=== PATIENT | male | born 1950 | race Caucasian/White ===

== ENCOUNTER 2017-03-13 18:21 | Emergency (ER) | payer MEDICARE, OTHER ==
[~2017-03-13] VITALS: Ht 165.1 cm; Wt 70.0 kg
[~2017-03-13 18:21] MED LIST: ACETAMIN325 MG PO; CIPROFLOXACN500 MG PO; COLCHICINE0.6 M2 PO; GLYCOLAX3350 N1 PO; LASIX 20 MG20 MG/TAB PO; LASIX 40 MG40 MG/TAB PO; LEXAPRO10 MG PO; NORCO1 TA1 PO; PANTOPRAZOLE SO40 M1 PO; PREDNISONE10 MG PO; PREDNISONE20 MG PO; PRILOSEC20 MG PO; TAB-A-VITE W/1 COMBO PO; THIAMINE HCL100 MG PO; TRAMADOL HCL50 MG PO; TRAMADOL HYDROC50 MG PO; [UNRECOGNIZED DRUG - CODE] PO
[2017-03-13] MEDS ORDERED: OMEPRAZOLE10 MG PO (18:40)
[2017-03-13] MEDS ORDERED: METOPROL TAR25 MG PO (18:40)
[2017-03-13] MEDS ORDERED: FERROUS SULF325 M2 PO (18:41)
[2017-03-13] MEDS ORDERED: LEVEMIR FL100 UNIT/M SC (18:42)
[2017-03-13] MEDS ORDERED: EFFEXOR XR75 MG PO (18:43)
[2017-03-13 18:56] LABS: HEMATOCRIT 42.4 % (39.0-50.0); HEMOGLOBIN 14.4 g/dl (14.0-18.0); IMMATURE GRANULOCYTES 0.9 % (0.0-1.0); MEAN CELL VOLUME 93.2 fL CALC (80.0-100.0); MEAN CORPUSCULAR HGB 31.6 pG CALC (26.0-32.0); NEUT# 7.39 thou/uL (1.82-7.42); RED BLOOD COUNT 4.55 mill/uL (4.70-6.10); RED CELL DISTRI WIDTH 12.9 % (11.5-15.5)
[2017-03-13 19:09] LABS: ALBUMIN 3.8 g/dL (3.2-5.0); BILIRUBIN, TOTAL 0.5 mg/dL (0.0-1.4); CALCIUM 9.2 mg/dL (8.4-10.2); CREATININE 1.5 mg/dL (0.7-1.3); POTASSIUM 4.5 mmol/l (3.5-5.1); TOTAL PROTEIN 6.7 g/dL (6.3-8.2)
[2017-03-13] MEDS ORDERED: ATIVAN0.5 MG PO (19:20)
[2017-03-13 19:56] VITALS: BP 132/84
== END 2017-03-13 19:56 ==
LOC: ED 18:21
PROVIDERS: Emergency Medicine
DX: R45.1 Restlessness and agitation (principal); I25.2 Old myocardial infarction; F03.90 Unspecified dementia, unspecified severity, without behavioral disturbance, psychotic disturbance, mood disturbance, and anxiety; E11.9 Type 2 diabetes mellitus without complications; Z79.4 Long term (current) use of insulin
CPT/HCPCS: J2060

== ENCOUNTER 2017-12-20 09:50 | Inpatient (IN) | payer MEDICARE, OTHER ==
[2017-12-20] VITALS (13 sets, daily range): BP systolic 84–140; BP diastolic 44–89
[~2017-12-20] VITALS: Ht 165.1 cm; Wt 60.0 kg
[~2017-12-20 09:50] MED LIST changes: +ATIVAN0.5 MG PO; +EFFEXOR XR75 MG PO; +FERROUS SULF325 M2 PO; +LEVEMIR FL100 UNIT/M SC; +METOPROL TAR25 MG PO; +OMEPRAZOLE10 MG PO
[2017-12-20 10:46] LABS: HEMATOCRIT 43.3 % (39.0-50.0); HEMOGLOBIN 14.7 g/dl (14.0-18.0); IMMATURE GRANULOCYTES 0.9 % (0.0-1.0); MEAN CELL VOLUME 93.1 fL CALC (80.0-100.0); MEAN CORPUSCULAR HGB 31.6 pG CALC (26.0-32.0); MEAN CORPUSCULAR HGB CONC 33.9 g/L CALC (32.0-36.0); NEUT# 16.27 thou/uL (1.82-7.42); RED BLOOD COUNT 4.65 mill/uL (4.70-6.10); RED CELL DISTRI WIDTH 13.3 % (11.5-15.5)
[2017-12-20 11:02] LABS: ALBUMIN 4.2 g/dL (3.2-5.0); BILIRUBIN, TOTAL 1.1 mg/dL (0.0-1.4); CREATININE 1.7 mg/dL (0.7-1.3); POTASSIUM 4.3 mmol/l (3.5-5.1); TOTAL PROTEIN 7.3 g/dL (6.3-8.2)
[2017-12-20] MEDS ORDERED: ERGOCALCIF50000 UNIT PO (12:45)
[2017-12-20] MEDS ORDERED: OMEPRAZOLE20 MG PO (12:46)
[2017-12-20] MEDS ORDERED: METFORMIN500 MG PO (12:47)
[2017-12-20] MEDS ORDERED: TAMSULOSIN HCL0.4 MG PO (12:47)
[2017-12-20] MEDS ORDERED: SEROQUEL25 MG PO (12:48)
[2017-12-20 17:56] LABS: URINE BLOOD DIPSTICK TRACE-INTACT (NEGATIVE); URINE GLUCOSE - DIPSTICK NEGATIVE (NEGATIVE); URINE KETONE TRACE mg/dL (NEGATIVE); URINE LEUK ESTERASE NEGATIVE (NEGATIVE); URINE NITRITE - DIPSTICK NEGATIVE (Negative); URINE PH 5.5 (4.5-8.0); URINE PROTEIN - DIPSTICK 30 mg/dL (NEG-TRACE); URINE SPECIFIC GRAVITY >=1.030
[2017-12-20 17:59] LABS: URINE BILIRUBIN - DIPSTICK NEGATIVE (NEGATIVE); URINE CLARITY CLEAR; URINE COLOR DK. YELLOW
[2017-12-20 18:10] LABS: URINE RBC 0-2 RBC/hpf (0-5); URINE WBC 0-2 WBC/hpf (0-5)
[2017-12-21] VITALS (17 sets, daily range): BP systolic 83–146; BP diastolic 35–75
[2017-12-21 06:19] LABS: HEMATOCRIT 34.5 % (39.0-50.0); HEMOGLOBIN 11.4 g/dl (14.0-18.0); IMMATURE GRANULOCYTES 0.9 % (0.0-1.0); MEAN CELL VOLUME 96.1 fL CALC (80.0-100.0); MEAN CORPUSCULAR HGB 31.8 pG CALC (26.0-32.0); NEUT# 11.15 thou/uL (1.82-7.42); RED BLOOD COUNT 3.59 mill/uL (4.70-6.10); RED CELL DISTRI WIDTH 13.8 % (11.5-15.5)
[2017-12-21 06:33] LABS: BILIRUBIN, TOTAL 0.5 mg/dL (0.0-1.4); CHOLESTEROL HDL RATIO 3.5 (<4.4 (CALC)); CREATININE 1.9 mg/dL (0.7-1.3); MAGNESIUM 1.6 mg/dL (1.6-2.3); POTASSIUM 4.3 mmol/l (3.5-5.1)
[2017-12-21 06:34] LABS: ALBUMIN 2.7 g/dL (3.2-5.0); TOTAL PROTEIN 5.3 g/dL (6.3-8.2)
[2017-12-22] VITALS (12 sets, daily range): BP systolic 99–146; BP diastolic 47–83
[2017-12-22 04:58] LABS: HEMATOCRIT 31.5 % (39.0-50.0); HEMOGLOBIN 10.4 g/dl (14.0-18.0); IMMATURE GRANULOCYTES 0.7 % (0.0-1.0); MEAN CELL VOLUME 97.2 fL CALC (80.0-100.0); MEAN CORPUSCULAR HGB 32.1 pG CALC (26.0-32.0); NEUT# 4.62 thou/uL (1.82-7.42); RED BLOOD COUNT 3.24 mill/uL (4.70-6.10); RED CELL DISTRI WIDTH 13.6 % (11.5-15.5)
[2017-12-22 05:45] LABS: CREATININE 1.6 mg/dL (0.7-1.3); POTASSIUM 4.5 mmol/l (3.5-5.1)
[2017-12-23] VITALS (11 sets, daily range): BP systolic 97–158; BP diastolic 43–73
[2017-12-23 05:00] LABS: HEMATOCRIT 35.1 % (39.0-50.0); HEMOGLOBIN 11.4 g/dl (14.0-18.0); IMMATURE GRANULOCYTES 0.7 % (0.0-1.0); MEAN CELL VOLUME 98.9 fL CALC (80.0-100.0); MEAN CORPUSCULAR HGB 32.1 pG CALC (26.0-32.0); MEAN CORPUSCULAR HGB CONC 32.5 g/L CALC (32.0-36.0); NEUT# 4.58 thou/uL (1.82-7.42); RED BLOOD COUNT 3.55 mill/uL (4.70-6.10); RED CELL DISTRI WIDTH 13.5 % (11.5-15.5)
[2017-12-23 05:16] LABS: ANION GAP 11 (6-22 (CALC)); BUN 21 mg/dL (8-23); BUN/CREATININE RATIO 15 (12-20 (CALC)); CARBON DIOXIDE 18 mmol/l (22-30); CHLORIDE 116 mmol/l (95-108); CREATININE 1.4 mg/dL (0.7-1.3); GFR 50 ML/MIN (>=60 (CALC)); GFR FOR AFR.AMER. > 60 ML/MIN (>=60 (CALC)); POTASSIUM 4.8 mmol/l (3.5-5.1); SODIUM 141 mmol/l (137-146)
[2017-12-24] VITALS (12 sets, daily range): BP systolic 114–155; BP diastolic 55–88
[2017-12-25] VITALS (12 sets, daily range): BP systolic 103–177; BP diastolic 53–95
[2017-12-26] VITALS: BP 114/51
[2017-12-26 02:00] VITALS: BP 163/81
[2017-12-26 04:00] VITALS: BP 152/77
[2017-12-26 04:18] LABS: HEMATOCRIT 33.6 % (39.0-50.0); HEMOGLOBIN 11.2 g/dl (14.0-18.0); IMMATURE GRANULOCYTES 1.5 % (0.0-1.0); MEAN CELL VOLUME 97.7 fL CALC (80.0-100.0); MEAN CORPUSCULAR HGB 32.6 pG CALC (26.0-32.0); MEAN CORPUSCULAR HGB CONC 33.3 g/L CALC (32.0-36.0); NEUT# 6.75 thou/uL (1.82-7.42); RED BLOOD COUNT 3.44 mill/uL (4.70-6.10); RED CELL DISTRI WIDTH 13.7 % (11.5-15.5)
[2017-12-26 04:41] LABS: ANION GAP 11 (6-22 (CALC)); BUN 13 mg/dL (8-23); BUN/CREATININE RATIO 9 (12-20 (CALC)); CARBON DIOXIDE 21 mmol/l (22-30); CHLORIDE 115 mmol/l (95-108); CREATININE 1.4 mg/dL (0.7-1.3); GFR 50 ML/MIN (>=60 (CALC)); GFR FOR AFR.AMER. > 60 ML/MIN (>=60 (CALC)); POTASSIUM 4.6 mmol/l (3.5-5.1); SODIUM 142 mmol/l (137-146)
[2017-12-26 06:00] VITALS: BP 152/77; BP 162/81
[2017-12-26 08:00] VITALS: BP 143/74
[2017-12-26] MEDS ORDERED: TRAMADOL HCL50 MG PO (08:26)
[2017-12-26] MEDS ORDERED: ASPIRIN EC325 MG PO (08:26)
[2017-12-26] MEDS ORDERED: LEVAQUIN750 MG PO (08:28)
[2017-12-26 10:35] VITALS: BP 159/79
== END 2017-12-26 11:32 | DRG 388 ==
LOC: ED 09:50 → ED-I 12:19 → ED 13:05 → ICU 13:06
PROVIDERS: Family Medicine; Internal Medicine; Nurse Practitioner Family; ADMIT Internal Medicine; ATTEND Internal Medicine
DX: K56.600 Partial intestinal obstruction, unspecified as to cause (principal); J18.9 Pneumonia, unspecified organism; I13.0 Hypertensive heart and chronic kidney disease with heart failure and stage 1 through stage 4 chronic kidney disease, or unspecified chronic kidney disease; F03.91 Unspecified dementia, unspecified severity, with behavioral disturbance; I47.1 Supraventricular tachycardia; I48.0 Paroxysmal atrial fibrillation; E11.40 Type 2 diabetes mellitus with diabetic neuropathy, unspecified; I50.9 Heart failure, unspecified; E11.22 Type 2 diabetes mellitus with diabetic chronic kidney disease; N18.3 Chronic kidney disease, stage 3 (moderate); K21.9 Gastro-esophageal reflux disease without esophagitis; F10.21 Alcohol dependence, in remission; F32.9 Major depressive disorder, single episode, unspecified; I25.2 Old myocardial infarction; I45.10 Unspecified right bundle-branch block; E83.42 Hypomagnesemia; K22.8 Other specified diseases of esophagus; Y95 Nosocomial condition; Z79.4 Long term (current) use of insulin; Z93.3 Colostomy status
CPT/HCPCS: J3370

== ENCOUNTER 2018-03-01 09:12 | Day surgery (SDC) | payer MEDICARE, OTHER ==
[~2018-03-01] VITALS: Ht 152.4 cm; Wt 62.6 kg
[~2018-03-01 09:12] MED LIST changes: +ASPIRIN EC325 MG PO; +ERGOCALCIF50000 UNIT PO; +LEVAQUIN750 MG PO; +METFORMIN500 MG PO; +MILK OF MAG30 ML/UDC PO; +OMEPRAZOLE20 MG PO; +SEROQUEL25 MG PO; +TAMSULOSIN HCL0.4 MG PO; +TYLENOL325 MG PO
[2018-03-01] MEDS ORDERED: LIPITOR10 M1 PO (10:37)
[2018-03-01 11:54] VITALS: BP 146/87
== END 2018-03-01 12:23 | disposition home or self-care (01) ==
LOC: ENDO 09:12 → ORM 12:45
PROVIDERS: ATTEND Surgery
PROC: 0DJ08ZZ Inspection of Upper Intestinal Tract, Via Natural or Artificial Opening Endoscopic (ICD-10-PCS; principal; 2018-03-01)
DX: K29.70 Gastritis, unspecified, without bleeding (principal); K44.9 Diaphragmatic hernia without obstruction or gangrene

== ENCOUNTER 2018-09-04 19:27 | Inpatient (IN) | payer MEDICARE, OTHER ==
[~2018-09-04] VITALS: Ht 152.4 cm; Wt 67.0 kg
[~2018-09-04 19:27] MED LIST changes: -METRONIDAZOL500 MG PO; -ONDANSETRON4 MG PO
[2018-09-04 20:59] LABS: IMMATURE GRANULOCYTES 0.7 % (0.0-5.0); MEAN CELL VOLUME 93.4 fL CALC (80.0-100.0); MEAN CORPUSCULAR HGB 30.9 pG CALC (26.0-32.0); NEUT# 23.72 thou/uL (1.82-7.42); RED BLOOD COUNT 4.86 mill/uL (4.70-6.10); RED CELL DISTRI WIDTH 13.7 % (11.5-15.5)
[2018-09-04 21:00] LABS: HEMATOCRIT 45.4 % (39.0-50.0)
[2018-09-04 21:13] LABS: BILIRUBIN, TOTAL 0.6 mg/dL (0.0-1.4); CREATININE 2.3 mg/dL (0.7-1.3); POTASSIUM 4.8 mmol/l (3.5-5.1)
[2018-09-04 21:14] LABS: ALBUMIN 4.2 g/dL (3.2-5.0); TOTAL PROTEIN 7.5 g/dL (6.3-8.2)
[2018-09-04 21:19] LABS: URINE BILIRUBIN - DIPSTICK NEGATIVE (NEGATIVE); URINE BLOOD DIPSTICK NEGATIVE (NEGATIVE); URINE COLOR YELLOW; URINE GLUCOSE - DIPSTICK NEGATIVE (NEGATIVE); URINE KETONE TRACE mg/dL (NEGATIVE); URINE LEUK ESTERASE NEGATIVE (NEGATIVE); URINE NITRITE - DIPSTICK NEGATIVE (Negative); URINE PH 5.5 (4.5-8.0); URINE PROTEIN - DIPSTICK TRACE mg/dL (NEG-TRACE); URINE SPECIFIC GRAVITY >=1.030; URINE UROBILINOGEN - DIPSTICK 0.2 E.U./dL (0.2)
[2018-09-04] MEDS ORDERED: METRONIDAZOL500 MG PO (23:39)
[2018-09-04] MEDS ORDERED: ONDANSETRON4 MG PO (23:40)
[2018-09-05 00:33] VITALS: BP 117/78
[2018-09-05 04:00] VITALS: BP 145/80
[2018-09-05 05:21] LABS: ALBUMIN 3.5 g/dL (3.2-5.0); BILIRUBIN, TOTAL 0.6 mg/dL (0.0-1.4); CREATININE 2.2 mg/dL (0.7-1.3); POTASSIUM 5.1 mmol/l (3.5-5.1); TOTAL PROTEIN 6.3 g/dL (6.3-8.2)
[2018-09-05 05:31] LABS: HEMATOCRIT 40.4 % (39.0-50.0); HEMOGLOBIN 13.2 g/dl (14.0-18.0); IMMATURE GRANULOCYTES 0.6 % (0.0-5.0); MEAN CELL VOLUME 95.7 fL CALC (80.0-100.0); MEAN CORPUSCULAR HGB 31.3 pG CALC (26.0-32.0); MEAN CORPUSCULAR HGB CONC 32.7 g/L CALC (32.0-36.0); NEUT# 17.74 thou/uL (1.82-7.42); RED BLOOD COUNT 4.22 mill/uL (4.70-6.10); RED CELL DISTRI WIDTH 13.9 % (11.5-15.5)
[2018-09-05 08:43] VITALS: BP 139/76
[2018-09-05 14:55] VITALS: BP 154/81
[2018-09-05 17:14] VITALS: BP 148/68
[2018-09-05 19:00] VITALS: BP 109/69
[2018-09-06] VITALS (7 sets, daily range): BP systolic 112–160; BP diastolic 69–95
== END 2018-09-07 01:29 | disposition expired | DRG 388 ==
LOC: ED 19:27 → ED-I 23:19 → ED 23:31 → MS2 23:32
PROVIDERS: Emergency Medicine; ADMIT Internal Medicine; ATTEND Internal Medicine
DX: K56.600 Partial intestinal obstruction, unspecified as to cause (principal); J18.9 Pneumonia, unspecified organism; J69.0 Pneumonitis due to inhalation of food and vomit; I12.9 Hypertensive chronic kidney disease with stage 1 through stage 4 chronic kidney disease, or unspecified chronic kidney disease; E11.22 Type 2 diabetes mellitus with diabetic chronic kidney disease; N18.3 Chronic kidney disease, stage 3 (moderate); F03.90 Unspecified dementia, unspecified severity, without behavioral disturbance, psychotic disturbance, mood disturbance, and anxiety; I25.10 Atherosclerotic heart disease of native coronary artery without angina pectoris; E11.40 Type 2 diabetes mellitus with diabetic neuropathy, unspecified; K21.9 Gastro-esophageal reflux disease without esophagitis; K44.9 Diaphragmatic hernia without obstruction or gangrene; I25.2 Old myocardial infarction; Y95 Nosocomial condition; Z66 Do not resuscitate; Z93.3 Colostomy status; Z90.49 Acquired absence of other specified parts of digestive tract; Z79.4 Long term (current) use of insulin
CPT/HCPCS: S0164

== ENCOUNTER → 2018-09-04 | Outpatient (REF) | payer MEDICARE, OTHER ==
[~2018-09-04] MED LIST changes: +LIPITOR10 M1 PO; +METRONIDAZOL500 MG PO; +ONDANSETRON4 MG PO
[2018-09-04 13:39] LABS: C. DIFFICILE TOXIN A&B NEGATIVE (NEGATIVE)
== END | disposition home or self-care (01) ==
LOC: LABSPEC 11:56 → LABSPEC-NH 11:56
PROVIDERS: ATTEND Internal Medicine
DX: R19.7 Diarrhea, unspecified (principal)